=== PATIENT | male | born 1965 | race African-American/Black ===

== ENCOUNTER 2017-05-03 08:48 | Emergency (ER) | payer OTHER ==
[2017-05-03 08:53] VITALS: BP 122/78; PULSE 78; TEMP 98.9; BMI 31.4
[2017-05-03] MEDS ORDERED: IBUPROFEN 600 MG TABLET (FP) PO ONE ×2 (09:17→09:18)
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
== END 2017-05-03 09:39 | disposition home or self-care (01) ==
LOC: JERFT 08:48
DX: S39.012A Strain of muscle, fascia and tendon of lower back, initial encounter (principal); S16.1XXA Strain of muscle, fascia and tendon at neck level, initial encounter; V44.6XXA Car passenger injured in collision with heavy transport vehicle or bus in traffic accident, initial encounter; Y92.488 Other paved roadways as the place of occurrence of the external cause; Y93.89 Activity, other specified
CPT/HCPCS: 99281-25

== ENCOUNTER 2017-05-08 07:34 | Emergency (ER) | payer OTHER ==
[2017-05-08 07:57] VITALS: BP 137/82; PULSE 74; TEMP 98.1; BMI 32.1
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
[2017-05-08] MEDS ORDERED: SULFAMETHOXAZOLE/TRIMETHOPRIM 800MG/160MG D.S. TABLET PO ONE (09:05)
[2017-05-08] MEDS ORDERED: IBUPROFEN 600 MG TABLET (FP) PO ONE ×2 (09:05→09:06)
[2017-05-08] MEDS ORDERED: SULFAMETHOXAZOLE/TRIMETHOPRIM 800MG/160MG D.S. TABLET ONE (09:06)
== END 2017-05-08 09:23 | disposition home or self-care (01) ==
LOC: JERFT 07:34 → JER 07:34 → JERFT 09:23
DX: L03.012 Cellulitis of left finger (principal); V49.9XXA Car occupant (driver) (passenger) injured in unspecified traffic accident, initial encounter; Y93.89 Activity, other specified; Y92.410 Unspecified street and highway as the place of occurrence of the external cause
CPT/HCPCS: 87070; 87184; 87205; 99281-25

== ENCOUNTER 2017-05-29 20:14 | Emergency (ER) | payer BC, OTHER ==
[2017-05-29 20:20] VITALS: BP 140/86; PULSE 83; TEMP 97.8; BMI 31.4
--- NOTE | 2017-05-29 20:43 | PDOC ---
History of Present Illness - General Chief Complaint: Eye Problem Stated Complaint: EYE INJURY Time Seen by Provider: 05/29/17 20:31 History Source: Patient Exam Limitations: No Limitations - History of Present Illness Initial Comments: 05/29/17 20:39 51-year-old male presents to the ED with complaints of redness to the right eye upon awakening this morning. Patient states has no visual changes, pain, or discharge from the eye. Patient states does not wear contacts and denies any blood thinner use. Patient also denies recent injury, coughing episodes or sneezing. Patient states has no discomfort presently. Patient assumed it would go away by today but since it didn't he decided come to the ER for further evaluation. Timing/Duration: other Associated Symptoms: reports: denies symptoms Past History - Travel Traveled outside of the country in the last 30 days: No Close contact w/someone who was outside of country & ill: No - Past Medical History Allergies/Adverse Reactions: Allergies Allergy/AdvReac Type Severity Reaction Status Date / Time Penicillins Allergy Swelling Verified 05/08/17 07:38 SEAFOOD Allergy Swelling Uncoded 05/08/17 07:38 Home Medications: Ambulatory Orders Rosuvastatin Calcium 40 mg PO ASDIR 05/29/17 - Suicide/Smoking/Psychosocial Hx Smoking History: Never smoked Have you smoked in the past 12 months: No Information on smoking cessation initiated: No Hx Alcohol Use: Yes Drug/Substance Use Hx: No Substance Use Type: None Patient Lives Alone: No Lives with/in: spouse/SO Review of Systems - Review of Systems Able to Perform ROS?: Yes Constitutional: No: Symptoms Reported HEENTM: Yes: Other Integumentary: No: Symptoms Reported Neurological: No: Headache, Dizziness Hematologic/Lymphatic: No: Symptoms Reported *Physical Exam - Vital Signs Last Vital Signs Temp Pulse Resp BP Pulse Ox 97.8 F 83 18 140/86 98 05/29/17 20:18 05/29/17 20:18 05/29/17 20:18 05/29/17 20:18 05/29/17 20:18 - Physical Exam General Appearance: Yes: Nourished, Appropriately Dressed. No: Apparent Distress HEENT: positive: EOMI, PERRY, Other (noted subconjunctival hemorrhage to the medial aspect of right eye. eyelid intact) Integumentary: positive: Normal Color, Warm, Moist Neurologic: positive: Motor Strength 5/5 (ambulatory) Medical Decision Making - Medical Decision Making 05/29/17 20:42 Patient with noted subconjunctival hemorrhage of the medial aspect of right eye. Patient given supportive care upon discharge. *DC/Admit/Observation/Transfer Diagnosis at time of Disposition: Subconjunctival hemorrhage of right eye - Discharge Dispostion Disposition: HOME Condition at time of disposition: Good - Referrals Referrals: Ludwig Ayala MD [Primary Care Provider] - - Patient Instructions Printed Discharge Instructions: DI for Subconjunctival Hemorrhage Additional Instructions: Please read over information enclosed. May return to ED if symptoms worsen including change in vision. Otherwise follow-up with your primary care physician as needed
== END 2017-05-29 20:44 | disposition home or self-care (01) ==
LOC: JERFT 20:14
DX: H11.31 Conjunctival hemorrhage, right eye (principal)
CPT/HCPCS: 99281-25